=== PATIENT | female | born 1940 | race Caucasian/White ===

== ENCOUNTER 2016-12-18 15:59 | Emergency (ER) | payer OTHER ==
[~2016-12-18] VITALS: Ht 147.3 cm; Wt 51.8 kg
[~2016-12-18 15:59] MED LIST: ALPRAZOLAM0.25 M2 PO; ASPIRIN325 MG PO; CIPROFLOXACIN500 M1 PO; ISOSORBIDE DINIT5 MG PO; LEVOTHYROXINE25 MCG PO; LEVOTHYROXINE50 MCG PO; LISINOPRIL5 MG PO; LITE COAT ASPI325 M1 PO; NITROSTAT0.4 MG SL; PRAVACHOL40 MG PO; PRAVASTATIN SOD80 MG PO; TRAMADOL HCL50 MG PO; TUMS500 MG PO; ZOFRAN4 MG PO
[2016-12-18 16:52] LABS: HEMATOCRIT 34.1 % (36.0-46.0); MCH 30.5 PG (29.0-34.0); MCHC 32.3 G/DL (30.0-36.0); MCV 94.5 FL (83-99); MEAN PLAT.VOLUME 10.3 uM^3 (9.5-12.4); PLATELET COUNT 195 K/uL (156-360); RBC DIS.WIDTH-CV 13.8 % (11.8-14.6); RBC DIS.WIDTH-SD 47.8 % (39-53); RED BLOOD COUNT 3.61 M/uL (3.80-5.20); WHITE BLOOD COUNT 6.5 K/uL (4.1-10.2)
[2016-12-18 17:03] LABS: CHLORIDE 107 mEq/L (99-109); POTASSIUM 3.5 mEq/L (3.7-5.4); SODIUM 141 mEq/L (136-147)
[2016-12-18 17:05] LABS: GLUCOSE 90 mg/dL (70-99)
[2016-12-18 17:06] LABS: ANION GAP 8 MEQ/L (2-14)
[2016-12-18 17:07] LABS: TOTAL BILIRUBIN 0.4 mg/dL (0.0-1.0)
[2016-12-18 17:08] LABS: ALKALINE PHOSPHATASE 60 IU/L (3-129)
[2016-12-18 17:09] LABS: GFR ESTIMATE (CALCULATED) > 59 mL/min/
[2016-12-18 17:10] LABS: UREA NITROGEN (BUN) 10 mg/dL (9-23)
[2016-12-18 17:42] LABS: ADD MIUA? NO; BILIRUBIN NEGATIVE; BLOOD NEGATIVE; COLOR STRAW ((YELLOW)); GLUCOSE (STRIP) NEGATIVE; KETONES 5; LEUKOCYTES NEGATIVE; NITRITE NEGATIVE; PROTEIN (STRIP) NEGATIVE; SPECIFIC GRAVITY 1.009 (1.000-1.030); UCUL ADDED? NO; UROBILINOGEN 0.2 MG/DL (0.2-1.0)
[2016-12-18] MEDS ORDERED: FLEET ENEMA-AD118 ML PR (19:55)
[2016-12-18] MEDS ORDERED: CIPRO500 MG PO (19:55)
[2016-12-18] MEDS ORDERED: FLAGYL500 MG PO (19:55)
[2016-12-18] MEDS ORDERED: MIRALAX255 GM PO (19:55)
[2016-12-18 20:23] VITALS: BP 145/69
== END 2016-12-18 20:41 | disposition home or self-care (01) ==
LOC: EME 15:59
PROVIDERS: Emergency Medicine
DX: K64.9 Unspecified hemorrhoids (principal); K62.89 Other specified diseases of anus and rectum; E03.9 Hypothyroidism, unspecified; Z87.891 Personal history of nicotine dependence; Z88.6 Allergy status to analgesic agent; Z88.5 Allergy status to narcotic agent; Z88.8 Allergy status to other drugs, medicaments and biological substances; I25.2 Old myocardial infarction; Z95.5 Presence of coronary angioplasty implant and graft
CPT/HCPCS: 74176; 74177; 80053; 81003; 85027; 99281; 99285; J7030

== ENCOUNTER 2017-05-12 17:43 | Emergency (ER) | payer OTHER ==
[~2017-05-12] VITALS: Ht 144.8 cm; Wt 48.9 kg
[~2017-05-12 17:43] MED LIST changes: +CIPRO500 MG PO; +FLAGYL500 MG PO; +FLEET ENEMA-AD118 ML PR; +MIRALAX255 GM PO
[2017-05-12] MEDS ORDERED: PREDNISONE20 MG PO (19:00)
[2017-05-12] MEDS ORDERED: CORTISONE60 GM TP (19:00)
[2017-05-12] MEDS ORDERED: CLARITIN10 MG PO (19:00)
[2017-05-12 19:39] VITALS: BP 144/65
== END 2017-05-12 19:43 | disposition home or self-care (01) ==
LOC: EME 17:43
DX: T63.481A Toxic effect of venom of other arthropod, accidental (unintentional), initial encounter (principal); S10.86XA Insect bite of other specified part of neck, initial encounter; Y93.H2 Activity, gardening and landscaping; Z95.5 Presence of coronary angioplasty implant and graft; Z79.82 Long term (current) use of aspirin; Z87.891 Personal history of nicotine dependence
CPT/HCPCS: 99281; 99284; J7512

== ENCOUNTER 2017-10-15 13:37 | Inpatient (IN) | payer OTHER ==
[~2017-10-15] VITALS: Ht 147.3 cm; Wt 54.0 kg
[~2017-10-15 13:37] MED LIST changes: +CLARITIN10 MG PO; +CORTISONE60 GM TP; -LEVOTHYROXINE50 MCG PO; -PRAVASTATIN SOD80 MG PO; +PREDNISONE20 MG PO; +TIROSINT75 MCG PO
[2017-10-15 14:35] LABS: HEMATOCRIT 40.4 % (36.0-46.0); HEMOGLOBIN 13.5 G/DL (11.9-15.5); MCH 32.1 PG (29.0-34.0); MCHC 33.4 G/DL (30.0-36.0); RBC DIS.WIDTH-CV 14.4 % (11.8-14.6); RBC DIS.WIDTH-SD 50.6 % (39-53); RED BLOOD COUNT 4.21 M/uL (3.80-5.20); WHITE BLOOD COUNT 8.4 K/uL (4.1-10.2)
[2017-10-15 14:46] LABS: CHLORIDE 102 mEq/L (99-109); POTASSIUM 4.1 mEq/L (3.7-5.4); SODIUM 138 mEq/L (136-147)
[2017-10-15 14:48] LABS: GLUCOSE 100 mg/dL (70-99)
[2017-10-15 14:52] LABS: CREATININE 0.8 mg/dL (0.6-1.3); GFR ESTIMATE (CALCULATED) > 59 mL/min/
[2017-10-15 14:53] LABS: UREA NITROGEN (BUN) 9 mg/dL (9-23)
[2017-10-15 14:58] LABS: TROP-I INTERPRETATION NEGATIVE; TROPONIN-I 0.02 ng/mL (0.0-0.30)
[2017-10-15 15:06] LABS: APPEARANCE SL.HAZY ((CLEAR)); BILIRUBIN NEGATIVE; BLOOD NEGATIVE; COLOR YELLOW ((YELLOW)); GLUCOSE (STRIP) NEGATIVE; KETONES NEGATIVE; LEUKOCYTES NEGATIVE; NITRITE NEGATIVE; PROTEIN (STRIP) NEGATIVE; SPECIFIC GRAVITY 1.015 (1.000-1.030); UROBILINOGEN 0.2 MG/DL (0.2-1.0)
[2017-10-15 15:09] LABS: ALBUMIN 4.1 g/dL (3.2-4.8)
[2017-10-15 15:12] LABS: TOTAL PROTEIN 7.4 g/dL (6.4-8.3)
[2017-10-15 15:14] LABS: TOTAL BILIRUBIN 0.9 mg/dL (0.0-1.0)
[2017-10-15 15:15] LABS: ALKALINE PHOSPHATASE 74 IU/L (3-129)
[2017-10-15 15:17] LABS: AST (GOT) 23 IU/L (2-34); DIRECT BILIRUBIN 0.3 mg/dL (0.0-0.3)
[2017-10-15 15:18] LABS: ALT (GPT) 12 IU/L (3-49); LIPASE 13 U/L (1.0-51.0)
[2017-10-15 15:20] LABS: PLAT.SUFFICIENCY ADEQUATE; PLATELET COUNT 186 K/uL (156-360)
[2017-10-15 15:39] LABS: BACTERIA NONE SEEN /HPF; EPITHELIAL CELLS RARE /HPF; MUCUS 1+ /LPF; RED BLOOD CELLS 0-5 /HPF (0-5); UCUL ADDED? NO; WHITE BLOOD CELLS 0-5 /HPF (0-5)
[2017-10-15] MEDS ORDERED: IMDUR30 MG PO (17:30)
[2017-10-15] MEDS ORDERED: VITAMIN B-12500 MC3 PO (17:39)
[2017-10-15 18:14] VITALS: BP 140/60
[2017-10-15 23:36] VITALS: BP 103/57; BP 97/55
[2017-10-16 06:09] LABS: HEMATOCRIT 33.1 % (36.0-46.0); MCH 31.4 PG (29.0-34.0); MCHC 32.3 G/DL (30.0-36.0); MCV 97.1 FL (83-99); PLATELET COUNT 145 K/uL (156-360); RBC DIS.WIDTH-CV 14.5 % (11.8-14.6); RBC DIS.WIDTH-SD 51.9 % (39-53); RED BLOOD COUNT 3.41 M/uL (3.80-5.20)
[2017-10-16 06:11] LABS: HEMOGLOBIN 10.7 G/DL (11.9-15.5)
[2017-10-16 06:19] LABS: ALBUMIN 3.1 G/DL (3.2-4.8); ALKALINE PHOSPHATASE 47 IU/L (3-129); ALT (GPT) 7 IU/L (3-49); AST (GOT) 12 IU/L (2-34); CHLORIDE 105 MEQ/L (99-109); CREATININE 0.7 MG/DL (0.6-1.3); GFR ESTIMATE (CALCULATED) > 59 mL/min/; GLUCOSE 90 mg/dL (70-99); POTASSIUM 3.7 MEQ/L (3.7-5.4); SODIUM 142 MEQ/L (136-147); TOTAL BILIRUBIN 0.6 MG/DL (0.0-1.0); TOTAL PROTEIN 5.1 G/DL (6.4-8.3); UREA NITROGEN (BUN) 9 mg/dL (9-23)
[2017-10-16 07:14] VITALS: BP 133/61
[2017-10-16 11:41] VITALS: BP 132/57
[2017-10-16 15:48] VITALS: BP 120/60
[2017-10-16 20:18] VITALS: BP 136/63
[2017-10-17 00:03] VITALS: BP 119/57
[2017-10-17 05:41] LABS: HEMATOCRIT 32.5 % (36.0-46.0); HEMOGLOBIN 10.6 G/DL (11.9-15.5); MCH 31.4 PG (29.0-34.0); MCHC 32.6 G/DL (30.0-36.0); MCV 96.2 FL (83-99); PLATELET COUNT 133 K/uL (156-360); RBC DIS.WIDTH-CV 13.9 % (11.8-14.6); RBC DIS.WIDTH-SD 49.8 % (39-53); RED BLOOD COUNT 3.38 M/uL (3.80-5.20); WHITE BLOOD COUNT 2.6 K/uL (4.1-10.2)
[2017-10-17 10:07] VITALS: BP 127/68
[2017-10-17 11:07] VITALS: BP 137/69
[2017-10-17 16:29] VITALS: BP 112/52
[2017-10-17 20:00] VITALS: BP 117/59
[2017-10-18 00:34] VITALS: BP 85/50
[2017-10-18 07:38] VITALS: BP 151/69
[2017-10-18 11:58] VITALS: BP 145/72
[2017-10-18] MEDS ORDERED: METRONIDAZOLE500 MG PO (15:40)
[2017-10-18] MEDS ORDERED: CIPROFLOXACIN500 M1 PO (15:40)
[2017-10-18 15:49] VITALS: BP 181/90
[2017-10-18] MEDS ORDERED: TRAMADOL HCL50 MG PO (16:48)
== END 2017-10-18 17:13 | disposition home or self-care (01) | DRG 392 ==
LOC: EME 13:37 → EDOF 16:39 → ENRESERV 16:47 → 5WEST 17:41 → ENRESERV 10-16 15:07 → 5WEST 10-16 15:08 → ENRESERV 10-16 15:23 → 5WEST 10-16 15:25 → ENRESERV 10-16 15:30 → 5WEST 10-16 15:31
PROVIDERS: Nurse Practitioner Family; Specialist; Student in an Organized Health Care Education/Training Program
DX: K57.32 Diverticulitis of large intestine without perforation or abscess without bleeding (principal); D61.818 Other pancytopenia; H53.2 Diplopia; I25.10 Atherosclerotic heart disease of native coronary artery without angina pectoris; I10 Essential (primary) hypertension; E03.9 Hypothyroidism, unspecified; I34.1 Nonrheumatic mitral (valve) prolapse; K59.00 Constipation, unspecified; E78.5 Hyperlipidemia, unspecified; K21.9 Gastro-esophageal reflux disease without esophagitis; K44.9 Diaphragmatic hernia without obstruction or gangrene; N32.89 Other specified disorders of bladder; M19.90 Unspecified osteoarthritis, unspecified site; I25.2 Old myocardial infarction; Z95.5 Presence of coronary angioplasty implant and graft; Z87.891 Personal history of nicotine dependence; Z80.6 Family history of leukemia; Z84.1 Family history of disorders of kidney and ureter; Z82.49 Family history of ischemic heart disease and other diseases of the circulatory system; Z82.3 Family history of stroke
CPT/HCPCS: 70450; 71046; 74177; 80048; 80053; 80076; 81003; 83690; 84484; 85027; 87040; 93005; 99281; 99285; G0378; J1650; J2405; J3010; J7030; J7120; S0028; S0030